=== PATIENT | male | born 1960 | race Caucasian/White ===

== ENCOUNTER 2024-05-09 04:37 | Emergency (ER) | payer MEDICAID ==
[~2024-05-09] VITALS: Ht 165.1 cm; Wt 66.8 kg
[2024-05-09 04:40] VITALS: TEMP 98
[2024-05-09] MEDS: normal saline 1000ml 1,000 ML IV ONE (06:46)
[2024-05-09 07:07] LABS: ALANINE AMINOTRANSFERASE 26 U/L (12-78); ALBUMIN 3.2 G/DL (3.4-5.0); ALBUMIN/GLOBULIN RATIO 0.6 (1.1-1.5); ALKALINE PHOSPHATASE 116 IU/L (46-116); ANION GAP 10 (8-16); ASPARTATE AMINO TRANSFERASE 27 U/L (10-37); BILIRUBIN,TOTAL 0.3 MG/DL (0.1-1.0); BLOOD UREA NITROGEN 16 MG/DL (7-18); CALCIUM 9.2 MG/DL (8.5-10.1); CHLORIDE 105 MMOL/L (99-107); CREATININE 0.64 MG/DL (0.60-1.10); GLUCOSE 101 MG/DL (70-104); POTASSIUM 4.2 MMOL/L (3.5-5.1); SODIUM 137 MMOL/L (135-145); TOTAL CARBON DIOXIDE 22.2 MMOL/L (24-32); TOTAL PROTEIN 8.3 G/DL (6.4-8.2); eCRCL 105 ML/MIN; eGFR > 90 ML/MIN
[2024-05-09 07:12] LABS: CREATINE KINASE 64 U/L (39-308); LIPASE 17 U/L (16-77)
[2024-05-09 07:30] LABS: BASOPHILS % (AUTO) 0.4 % (0-1); EOSINOPHILS # (AUTO) 0.1 X10'3 (0-0.9); EOSINOPHILS % (AUTO) 1.2 % (0-6); HEMATOCRIT 36.5 % (42.0-52.0); HEMOGLOBIN 11.7 g/dl (14.0-17.9); LYMPHOCYTES % (AUTO) 10.2 % (21-51); MEAN CORPUSCULAR HEMOGLOBIN 28.9 PG (27.0-31.0); MEAN CORPUSCULAR VOLUME 90.5 FL (78-98); MEAN PLATELET VOLUME 7.5 FL (7.4-10.4); MONOCYTES # (AUTO) 1.1 X10'3 (0-0.9); MONOCYTES % (AUTO) 11.2 % (2-12); NEUTROPHILS # (AUTO) 7.2 X10'3 (1.8-7.7); PLATELET COUNT 422 X10'3 (140-440); RED BLOOD COUNT 4.04 X10'6 (4.70-6.10); RED CELL DISTRIBUTION WIDTH 13.5 % (11.5-14.5); WHITE BLOOD COUNT 9.4 X10'3 (4.5-11.0)
[2024-05-09 08:27] LABS: BILIRUBIN,URINE NEGATIVE (Neg); CLARITY,URINE CLEAR (Clear); COLOR,URINE YELLOW (Yellow); GLUCOSE, URINE NEGATIVE (Neg); KETONES,URINE 15 mg/dl (Neg); LEUKOCYTE ESTERASE ,URINE NEGATIVE (Neg); NITRITES, URINE NEGATIVE (Neg); OCCULT BLOOD,URINE SMALL (Neg); PH,URINE 5.5 (4.8-8.0); PROTEIN,URINE NEGATIVE (Neg); UROBILINOGEN,URINE 0.2 E.U/dL (0.2-1.0)
[2024-05-09 08:30] LABS: UA COLLECTION TYPE NON-SPECIFIED
[2024-05-09 08:40] LABS: BACTERIA,URINE NONE SEEN /HPF (Neg); MUCUS STRANDS NONE SEEN /LPF (Neg); SQUAMOUS EPITHELIAL CELL,UR NONE SEEN /LPF (FEW); WBC,URINE 0-4 /HPF (0-4)
[2024-05-09 10:02] LABS: MAGNESIUM 1.8 MG/DL (1.5-2.4)
[2024-05-09 10:06] LABS: ETHANOL < 10 MG/DL (<10)
[2024-05-09 10:22] LABS: URINE AMPHETAMINE SCREEN NEGATIVE (Neg); URINE BARBITUATE SCREEN NEGATIVE (Neg); URINE BENZODIAZEPINES SCREEN NEGATIVE (Neg); URINE CANNABINOID SCREEN POSITIVE (Neg); URINE COCAINE SCREEN NEGATIVE (Neg); URINE METHADONE SCREEN NEGATIVE (Neg); URINE OPIATE SCREEN NEGATIVE (Neg); URINE PHENCYCLIDINE SCREEN NEGATIVE (Neg)
[2024-05-09 13:36] LABS: C-REACTIVE PROTEIN 25.94 MG/DL (0.0-0.5)
[2024-05-09] MEDS ORDERED: CYCL-1 PO (18:54)
[2024-05-09] MEDS ORDERED: DIAZ5TAB22 PO (18:54)
[2024-05-09] MEDS: diazepam 5mg tablet PO ONE (19:05)
[2024-05-09 19:06] VITALS: BP 160/96; PULSE 91; RESP 14; O2SAT 98
== END 2024-05-09 19:29 | disposition left against medical advice (07) ==
LOC: ER 04:38
DX: R26.2 Difficulty in walking, not elsewhere classified (principal); R53.1 Weakness; M54.2 Cervicalgia; M54.89 Other dorsalgia; Z79.899 Other long term (current) drug therapy; Z98.890 Other specified postprocedural states; Z72.89 Other problems related to lifestyle
CPT/HCPCS: 36415; 70450; 71045; 72141; 72146; 72148; 80053; 80305; 80320; 81001; 82550; 83690; 83735; 84484; 85025; 85651; 86140; 93005; 96360; 99285; J7030